=== PATIENT | female | born 1990 | race Caucasian/White ===

== ENCOUNTER 2019-12-11 08:53 | Inpatient (IN) | payer OTHER ==
[~2019-12-11] VITALS: Ht 172.8 cm; Wt 90.5 kg
[2019-12-12] VITALS (19 sets, daily range): BP systolic 105–153; BP diastolic 61–93; PULSE 59–100; TEMP 98.3–99.1
[2019-12-12] MEDS ORDERED: CELEXA 20MG20 MG/TAB PO (10:45)
[2019-12-12] MEDS ORDERED: PRENATAL (10:46)
[2019-12-12 11:12] LABS: BASO % 0.2 % (0.0-2.0); EOS # 0.1 (0.0-0.7); EOS % 0.6 % (0-4.0); GRAN # 6.6 (1.4-6.5); GRAN % 74.4 % (42.2-75.2); HEMATOCRIT 41.2 % (37.0-47.0); HEMOGLOBIN 14.2 g/dl (12.5-16.0); LYMPH # 1.4 (1.2-3.4); MEAN CELL VOLUME 88 fl (80.0-100.0); MEAN CORPUSCULAR HEMOGLOBIN 30 pg (27.0-31.0); MEAN CORPUSCULAR HGB CONC 35 g/dl (33.0-37.0); MEAN PLATELET VOLUME 10.1 fl (7.4-10.4); MONO # 0.7 (0.1-0.6); MONO % 8.1 % (1.7-9.3); PLATELET COUNT 232 K/mm3 (130-400); RED BLOOD COUNT 4.69 M/mm3 (4.10-5.30); REDCELL DISTRIBUTION WIDTH-CV 13.6 % (11.5-14.5)
[2019-12-12] MEDS ORDERED: IBU600 MG PO (13:19)
[2019-12-12] MEDS ORDERED: PERCOCET 325 MG1 TA2 PO (13:19)
--- NOTE | 2019-12-12 13:50 | NUR ---
1353- Upon routine fundal massage patient found to have large amount of free flow in bedding and jimenez pad saturated. VSS, patient denies symptoms of hypotension or blood loss. Fundus firm and at umbilicus. Clots expressed with fundal massage. 1358-Dr. Church notified and methergine requested. Order recieved 1405-IM methergine to right thigh. 1411-BP 132/82, heart rate 87 remains A&Ox4. Fundus remains firm, lochia now WNL. Taken via bed to room and updated on recovery plan of care.
[2019-12-13 00:30] VITALS: BP 118/74; PULSE 62; TEMP 98
[2019-12-13 07:09] VITALS: BP 112/64; PULSE 64; TEMP 97.7
[2019-12-13 16:30] VITALS: BP 110/69; PULSE 70; TEMP 98
[2019-12-14 07:21] VITALS: BP 120/80; PULSE 74; TEMP 97.8
[2019-12-14] MEDS ORDERED: CELEXA 20MG20 MG/TAB PO (08:24)
[2019-12-14 17:07] VITALS: BP 120/78; PULSE 87; TEMP 98.7
[2019-12-14 20:00] VITALS: BP 123/87; PULSE 89; TEMP 98.3
[2019-12-15 08:15] VITALS: BP 123/87; PULSE 87; TEMP 98.7
--- NOTE | 2019-12-15 11:26 | NUR ---
DISCHARGE INFORMATION GIVEN AT THIS TIME. ALL QUESTIONS ANSWERED AT THIS TIME.
== END 2019-12-15 11:43 | disposition home or self-care (01) | DRG 788 ==
LOC: OB 12-12 08:52
PROVIDERS: ADMIT Obstetrics & Gynecology
PROC: 10D00Z1 Extraction of Products of Conception, Low, Open Approach (ICD-10-PCS; principal; 2019-12-12)
DX: O99.344 Other mental disorders complicating childbirth (principal); F41.9 Anxiety disorder, unspecified; Z3A.39 39 weeks gestation of pregnancy; Z37.0 Single live birth
CPT/HCPCS: J0690; J1100; J1885; J2210; J2270; J2370; J2405; J2590; J7120

== ENCOUNTER → 2020-01-28 | Outpatient (CLI) | payer OTHER ==
[~2020-01-28] MED LIST: CELEXA 20MG20 MG/TAB PO; IBU600 MG PO; PERCOCET 325 MG1 TA2 PO; PRENATAL
--- NOTE | 2020-01-28 17:04 | NUR ---
Pt, Lindsey Horn, presents for outpaient consult with 6 week old baby girl, Cherie Horn, for a evaluation because Cherie has some clicking, has some feeding where she is on and off a lot, and maybe is not finishing her feedings. Cherie was born on [birth year] and weighed 8#9.6oz (3900 gms). Today she weighs 10#2.4oz for an average gain of 0.52oz per day. Pt started block feeding Cherie at about 2 weeks of age to help with let down and what appeared to be an abundant supply of milk. She continues this feeding pattern. Pt also states Cherie will nurse every 2-3 hours in the night hours and most of the daytime, but late afternoon and evening she seems to be at the breast constantly but does not settle in and nurse or get full acting, resulting in 12-15 feedings per 24 hours. At this feeding pt latches Cherie well and easily. She has lots of swallows and releases after less than 10 minutes of nursing. her weight gain at this point was 2.4oz. Pt advised to continue nursing on the same breast. Toward the end of the second nursing Joey started to demonstrate the behaviour pt has described. Pt advised to support the breast a bit more, but that does not make a significant difference. After a few minutes more minutes she was reweighed. Total weight gain after was 3.3oz (94 gms). Cherie appears content. POC: Pt advised to resume bilateral and see if baby gets content longer, especially in the evenings. F/U: As desired by pt, or advised by physician. Cherie will have her first appt with Dr. Dixon at her 2 month appt, which pt still needs to schedule. Questions invited and answered.
== END ==
LOC: LAC 15:24
DX: Z39.1 Encounter for care and examination of lactating mother (principal); Z71.89 Other specified counseling

== ENCOUNTER 2022-10-17 03:37 | Inpatient (IN) | payer OTHER ==
[2022-10-17] VITALS (20 sets, daily range): BP systolic 95–159; BP diastolic 63–101; PULSE 70–125; TEMP 97.9–98.9
[~2022-10-17] VITALS: Ht 170.2 cm; Wt 86.4 kg
--- NOTE | 2022-10-17 04:00 | NUR ---
0400 G3 L1 41.5 GEST TO LR5 WITH C/O SROM AND ACTIVE LABOR. PREVIOUS C/SECT WITH SECOND BABY BUT DESIRES . FIRST BABY WAS A HOME DELIVERY WITH BABY DELIVERING IN CAR ON WAY TO HOSPITAL AND FOUR DAYS LATER. EFM. SVE /-2 WITH POSITIVE AMNIOTRACE AND LEAKING CL FLUID. PLAN PRESENTED. WANTS LITTLE INTERVENTION POSSIBLE. STATION MECHANIC AND AT SIDE. INSTRUCTED NEEDS TO BE CONSTANTLY MONITERED DUE TO AND UNDERSTANDS. ADM ASSESSMENT COMPLETED. 0410 DR MCKEON NOTIFIED AND ORDERS RECEIVED.
[2022-10-17] MEDS ORDERED: CELEXA10 MG PO (04:03)
[2022-10-17] MEDS ORDERED: PRENATAL TABLET PO (04:04)
--- NOTE | 2022-10-17 04:30 | NUR ---
0430 PERMITS SIGNED. IV STARTED AND IV ABX STARTED. WANTS TO BE UP AND OUT OF BED JOHN. SALES LEDGER ADMINISTRATOR NOTIFIED OF IN LABOR.
[2022-10-17 04:56] LABS: BASO % 0.2 % (0.0-2.0); EOS # 0.1 K/mm3 (0.0-0.7); EOS % 0.8 % (0.0-4.0); GRAN # 8.9 K/mm3 (1.4-6.5); GRAN % 75.4 % (42.2-75.2); HEMATOCRIT 39.5 % (37.0-47.0); HEMOGLOBIN 13.6 g/dl (12.5-16.0); LYMPH # 1.8 K/mm3 (1.2-3.4); LYMPH % 14.9 % (20.0-51.0); MEAN CELL VOLUME 87 fl (80.0-100.0); MEAN CORPUSCULAR HEMOGLOBIN 30 pg (27-31); MEAN CORPUSCULAR HGB CONC 34 g/dl (33.0-37.0); MEAN PLATELET VOLUME 10.3 fl (7.4-10.4); MONO % 8.1 % (1.7-9.3); PLATELET COUNT 235 K/mm3 (130-400); RED BLOOD COUNT 4.52 M/mm3 (4.10-5.30); REDCELL DISTRIBUTION WIDTH-CV 13.1 % (11.5-14.5)
--- NOTE | 2022-10-17 05:00 | NUR ---
0500 IV ABX INFUSED. IV TO INT. PT UP ON BIRTHING BALL WITH TIE IN HAND AT BEDSIDE. PORTABLE EFM APPLIED. INSTRUCTED TO CALL IF ANY NEED TO PUSH
--- NOTE | 2022-10-17 07:00 | NUR ---
PT REFUSING BLOOD PRESSURES AND BLOOD PRESSURE CUFF THROUGHOUT MORNING. PT ON FLOOR WITH ORTHOTIC/PROSTHETIC CLINICIAN ON ALL 4'S, UNCONTROLLED AT THIS TIME. DIFFICULTY TRACING EFM/TOCO DUE TO MATERNAL POSITIONING AND MOVEMENTS. THIS NURSE REMAINS IN ROOM OFFERING SUPPORT. PT REMAINS ON PORTABLE EFM TRACING. WILL CONTINUE TO ATTEMPT VITAL SIGNS AND CONTINUOUS MONITORING. MECONIUM STAINED FLUID CONTINUES TO STAIN DISPOSABLE PAD UNDERNEATH PATIENT.
--- NOTE | 2022-10-17 07:10 | NUR ---
AT BEDSIDE. SVE . MECONIUM FLUID NOTED. PT REMAINS UNCTROLLED THROUGHOUT LABOR PROCESS. CRIME SCENE PHOTOGRAPHER AT BEDSIDE. PT DISCOURAGED THAT SHE IS NOT COMPLETE. THIS NURSE PROVIDES SUPPORT. PT REQUESTING INFORMATION AND EDUCATION ON EPIDURAL PLACEMENT, THIS NURSE PROVIDES INFORMATION. NO FURTHER QUESTIONS OR CONCERNS AT THIS TIME.
--- NOTE | 2022-10-17 07:15 | NUR ---
THIS NURSE REMAINS AT BEDSIDE. PT IN SQUATTING POSITION LABORING IN BED. REMAINS UNCONTROLLED, BEGINS CRYING OUT REQUESTING AN EPIDURAL. THIS NURSE ALLOWS PT TO CALM, AND HAS A CONVERSATION REGARDING EPIDURAL REQUEST. REVIEWS PLAN. ALLOWS PT AND TO COMMUNICATE. PT CALMLY REQUESTING EPIDURAL. GIANLUCA CAVAZOS CRNA NOTIFIED. 0730: PT TO SITTING POSITION ON EDGE OF BED FOR EPIDURAL PLACEMENT. THIS NURSE PROVIDES SUPPORT FOR PT TO HELP COPE WITH CONTRACTIONS. EFM TRACING CATEGORY 1. BOTH EFM AND TOCO BANDS REMOVED PER PT, THEY WERE "TOO SORE" WHERE GIANLUCA NEEDED THEM THROUGHOUT EPIDURAL PLACEMENT. INTERMITTENT TRACING AT THIS TIME DUE TO MATERNAL POSITIONING. BP ATTACHMENT ON MONITOR FAILS AT THIS TIME. PORTABLE BLOOD PRESSURE MACHINE BROUGHT TO BEDSIDE, MANUALLY ENTERED BY THIS NURSE. VITAL SIGNS STABLE. LR BOLUS INFUSING PER PROTOCOL. 0733: TEST DOSE PER GIANLUCA CAVAZOS CRNA. NO PUMP DUE TO ADVANCED STAGE OF LABOR. PT TOLERATED PROCEDURE WELL.
--- NOTE | 2022-10-17 08:25 | NUR ---
0825: REMAINS ON UNIT. THIS NURSE PERFORMS SVE. PT COMPLETE/+2 STATION. ROOM PREPARED FOR DELIVERY. ALL STAFF NOTIFIED. EPIDURAL WORKING WELL, PROVIDING TOTAL PAIN RELIEF PER PT REPORT. PT COACHED ON PUSHING EFFORTS. BEGINS PUSHING AT THIS TIME. 0841: OF VIABLE FEMALE AT THIS TIME PER . MECONIUM FLUID NOTED. DELAYED CORD CLAMPING FOLLOWING DELIVERY, UPON NO FURTHER CORD PULSATIONS, CORD WAS CLAMPED X2 AND CUT MY FOB. INFANT PLACED ON MATERNAL ABDOMEN PER REQUEST. DRIED AND STIMULATED. CARE OF INFANT ASSUMED BY GEOVANI BIRD. MOTHER IN STABLE CONDITION AT THIS TIME. CORD GASES SENT TO LAB FOR MECONIUM FLUID. 0847: OF PLACENTA. UPON PT REQUEST, NO PITOCIN STARTED AT THIS TIME, PT STATES "I AM NOT OPPOSED TO IT IF MEDICALLY INDICATED OR IF MY BLEEDING INCREASES." LR INFUSING PER PROTOCOL. MATERNAL VITAL SIGNS STABLE PER DYNAMAP AT BEDSIDE. BEGINS REPAIR OF SUPERFICIAL PERIURETHAL LACERATION. PT TOLERATES SUTURES WELL. 0915: MODERATE LOCHIA, WITH FREEFLOW AND CLOT NOTED. 250ML QBL WITH THIS FUNDAL MASSAGE. FUNDUS FIRMS UP WITH MASSAGE. PITOCIN BOLUS INFUSING PER . WILL CONTINUE TO MONITOR LOCHIA, AND UPDATE PHYSICIAN ACCORDINGLY. MATERNAL VITAL SIGNS REMAIN STABLE. LR BAG #2 STARTED WELL AT THIS TIME TO HELP REPLENISH BLOOD LOSS. 1015: FUNDUS FIRM AT UMBILICUS, PITOCIN BOLUS CONTINUES INFUSING. LOCHIA BEGINNING TO SLOW. SCANT AT THIS TIME. TOTAL QBL FOR PP RECOVERY UP TO THIS POINT IS 448CC. NO FURTHER FREE FLOW OR CLOTS NOTED. WILL CONTINUE WITH PLAN OF CARE.
--- NOTE | 2022-10-17 13:02 | NUR ---
PER PT, SHE IS TAKING CELEXA AT HOME, AND WAS TOLD NOT TO TAKE MOTRIN WITH HER CELEXA. PHARMACY VERIFIES THERE COULD POTENTIALLY BE AN ANTIPLATELET PROPERTY INTERACTION WITH BOTH MEDS BEING TAKEN TOGETHER, BUT TO VERIFY WITH HER OB. PER , PT MAY TAKE MOTRIN PER ORDER, WELL HER CELEXA. PT'S PLATELETS CURRENTLY STABLE AND LOCHIA SCANT.
[2022-10-18] VITALS: BP 108/64; PULSE 72; TEMP 98.1
[2022-10-18 04:30] VITALS: BP 133/86; PULSE 75; TEMP 98.1
[2022-10-18 08:25] VITALS: BP 114/58; PULSE 62
[2022-10-18] MEDS ORDERED: MOTRIN 800800 MG/TAB PO (08:29)
--- NOTE | 2022-10-18 10:26 | NUR ---
Initial visit; Patient thanked Cutter Wet Machine for offering congratulations for the of her daughter. Cutter Wet Machine thanked patient for choosing [facility]via [facility].
[2022-10-18 16:20] VITALS: BP 122/72; PULSE 66
[2022-10-19 09:27] VITALS: BP 119/70; PULSE 67; TEMP 98.2
--- NOTE | 2022-10-19 11:13 | NUR ---
0830 VSS. MOTHER STATES PAIN IS CONTROLLED. REQUESTS TYLENOL. MOTHER USING HAND PUMP TO RELIEVE PRESSURE PRIOR TO BREAST FEEDING INFANT. MOTHER HAS 3 OZ OF PUMPED MILK TO PUT IN FREEZER. MILK LABELED AT BEDSIDE. MOTHER STATES PLAN TO DISCHARGE HOME TODAY IF BABY CAN.
--- NOTE | 2022-10-19 12:52 | NUR ---
1210 DISCHARGE INFORMATION PROVIDED. MOTHER VERBALLY UNDERSTANDS DISCHARGE INFO FOR SELF AND . INFANT PLACED IN CARSEAT. STRAPS CHECKED. FATHER CARRIES INFANT OFF UNIT. MOTHER AMBULATES TO CAR. THIS RN ESCORTS FAMILY TO VEHICLE. PLACED REAR FACING IN SECURE CAR SEAT BASE.
== END 2022-10-19 12:12 | disposition home or self-care (01) | DRG 807 ==
LOC: LDRO 03:37 → LDR 04:22 → OB 04:22
PROVIDERS: ADMIT Obstetrics & Gynecology
PROC: 10E0XZZ Delivery of Products of Conception, External Approach (ICD-10-PCS; principal; 2022-10-17)
PROC: 0UQMXZZ Repair Vulva, External Approach (ICD-10-PCS; 2022-10-17)
DX: O34.219 Maternal care for unspecified type scar from previous cesarean delivery (principal); Z37.0 Single live birth; O99.344 Other mental disorders complicating childbirth; F41.9 Anxiety disorder, unspecified; O48.0 Post-term pregnancy; F32.A Depression, unspecified; O77.0 Labor and delivery complicated by meconium in amniotic fluid; O99.824 Streptococcus B carrier state complicating childbirth; O71.82 Other specified trauma to perineum and vulva; Z3A.41 41 weeks gestation of pregnancy
CPT/HCPCS: J2540; J2590; J2795; J7120

== ENCOUNTER → 2022-10-23 | Outpatient (CLI) | payer OTHER ==
[~2022-10-23] MED LIST changes: +CELEXA10 MG PO; +MOTRIN 800800 MG/TAB PO; +PRENATAL TABLET PO
--- NOTE | 2022-10-23 14:02 | NUR ---
Pt, Lindsey Garveydelmis, presents for outpatient consult with 6 day old baby girl, Marcella Horn, and pt's spouse, Josias Horn. Pt contacted this LC with concerns that she could not get Marcella to latch over the weekend and is now pumping and bottle feeding. Marcella was born on [birth year] and weighed 8# 14oz (4025 gms). Today Marcella weighs 8# 13.8oz (4020 gms). She is being bottle fed EBM by bottle due to inability to latch, she is taking 1.5 - 2oz q 2.5 hours, has qs voids and stools. Pt has oversupply of milk, being able to express 5oz when Marcella does not nurse, and has more, but is not completely emptying the breasts. At this time Lindsey expresses about 10ml prior to latching Marcella, who initially latches but withing 1-2 minutes begins sputtering and coughing so comes off breast. Marcella then becomes fussy and does not relatch despite several attempts and position changes that may help manage milk flow. Weight gain after the initial 1-2 min of nursing was 22 gms (0.8oz). Eventually we placed a nipple shield to try to slow the let-down and milk flow, and Marcella eventually latches two more times. The last time at the breast she relaxed and nursed for an reasonable amount of time. Total weight gain after feeding was 3.2oz (90 gms). Discussed plans to try to decrease over supply of milk, including cabbage leaves, peppermint, 1-2 doses of sudafed, and block feeding. Anticipate nipple shield will be helpful to manage flow until oversupply mangages down. POC: Block feeding and additional suggestions to decrease oversupply of milk, Nipple shield as needed. F/U: As needed with LC and as scheduled with physicians. Wuestions invited and answered.
== END ==
LOC: LAC 13:09
DX: Z39.1 Encounter for care and examination of lactating mother (principal); Z71.89 Other specified counseling